=== PATIENT | male | born 1990 | race Two or more races ===

== ENCOUNTER 2018-07-29 11:08 | Emergency (ER) | payer OTHER ==
[~2018-07-29] VITALS: Ht 180.3 cm; Wt 90.7 kg
--- NOTE | 2018-07-29 11:05 | NUR ---
ED Nurse Note: Pt. AAOX4. ambulatory. brought in by [facility] due to swelling and bruising on the 1st digit of the R foot. Skin is intact. no drainage noted. Per EMS, pt. was carrying a truck battery and it fell on his R foot. pt. is on custody.
--- NOTE | 2018-07-29 11:30 | NUR ---
ED Nurse Note: report received from Nia KIRK, pt resting in bed, VSS, noted contusion and swelling on right foot big toe area, +cms intact, cap refill <3sec, audrey pedal pulses +2. [employer] at the bedside, will cont monitor.
--- NOTE | 2018-07-29 12:01 | NUR ---
ED Nurse Note: called radiology for xray foot.
[2018-07-29 12:15] VITALS: BP 139/91
--- NOTE | 2018-07-29 13:18 | NUR ---
ED Nurse Note: pt sleeping, VSS, [employer] at the bedside, pt arousable to light shaking and name, will cont monitor.
--- NOTE | 2018-07-29 14:04 | Emergency Room Report ---
History of Present Illness General Chief Complaint: Lower Extremity Injury Source: Patient, EMS Present Illness HPI This patient states that he dropped a car battery on his right foot yesterday morning. He has pain in his right great toe. He has no other injuries or complaints. He is in custody by [employer]. Allergies: Coded Allergies: No Known Allergies (Unverified , 07/29/18) Patient History Past Medical History: none, see triage record Social History: Denies: smoking, alcohol use, drug use Reviewed Nursing Documentation: PMH: Agreed; PSxH: Agreed Nursing Documentation-PMH Past Medical History: No Stated History Review of Systems All Other Systems: negative except mentioned in HPI Physical Exam Vital Signs Date Time Temp Pulse Resp B/P (MAP) Pulse Ox O2 Delivery O2 Flow Rate FiO2 07/29/18 11:03 98.2 99 18 123/80 98 Room Air Sp02 EP Interpretation: reviewed, normal General Appearance: no apparent distress, alert, GCS 15, non-toxic Head: normocephalic, atraumatic Eyes: bilateral eye normal inspection, bilateral eye PERRL ENT: hearing grossly normal, normal pharynx, no angioedema, normal voice Neck: full range of motion, supple/symm/no masses Respiratory: no respiratory distress, no retraction, no accessory muscle use, speaking full sentences Rectal: deferred Musculoskeletal: back normal, normal range of motion, tender - R. great toe swollen with ecchymosis and ttp over the distal great toe and IP joint. Neurologic: alert, oriented x3, responsive, motor strength/tone normal, sensory intact, speech normal Psychiatric: judgement/insight normal, memory normal, mood/affect normal, no suicidal/homicidal ideation Skin: normal color, no rash, warm/dry, well hydrated Medical Decision Making Diagnostic Impression: Primary Impression: Toe fracture, right ER Course This patient has a fracture of his right great toe. It is nondisplaced. He was placed in a hard soled show any toe was amrita taped to the other toe. He is in custody and cannot have crutches as these could be used as a weapon while in detention. He was instructed to follow-up with detention medical. He is cleared for incarceration. Last Vital Signs Date Time Temp Pulse Resp B/P (MAP) Pulse Ox O2 Delivery O2 Flow Rate FiO2 07/29/18 12:15 98.2 71 18 139/91 100 Room Air Disposition: D/C TO LAW ENFORCEMENT IN CUST Condition: Stable Fabiola Montano DO Jul 29, 2018 14:04
[2018-07-29] MEDS ORDERED: Ketorolac 60mg Inj IM ONE (14:15)
--- NOTE | 2018-07-29 14:19 | Diagnostic Imaging Report ---
Indication: Foot Pain Comparison: None Findings: 3 views of the right foot were obtained. Acute nondisplaced intra-articular fracture involving the base of the first distal phalange extending into the interphalangeal joint. Fracture involves the lateral or fibular side of the bone. IMPRESSION: Acute fracture involving the first distal phalange
--- NOTE | 2018-07-29 14:20 | NUR ---
ED Nurse Note: pt discharge instruction provided to [employer] and pt, pt advised to follow up with medical staff at prison, pt wound care and orthoshoe applied by civilian technician, pt verbalized understanding and agrees with plan, pt clear to book per ERMD.all belongings left with pt. pt vss, ambulatory w/ steady gait.
[2018-07-29 14:41] VITALS: BP 128/98
== END 2018-07-29 14:20 ==
LOC: EDBD 11:08 → EMR 11:42
DX: S92.404A Nondisplaced unspecified fracture of right great toe, initial encounter for closed fracture (principal); W22.8XXA Striking against or struck by other objects, initial encounter; Y92.89 Other specified places as the place of occurrence of the external cause
CPT/HCPCS: 96372; 99283